=== PATIENT | female | born 1965 | race Two or more races ===

== ENCOUNTER 2016-12-13 13:27 | Outpatient (CLI) | payer OTHER ==
--- NOTE | 2016-12-13 20:04 | MRI Report ---
EXAM: RIGHT KNEE MRI WITHOUT CONTRAST EXAM DATE: 12/13/2016 02:28 PM. CLINICAL HISTORY: RT KNEE PAIN, CHRONIC. ARTHROSCOPIC SURGERY 4 YRS AGO TO REMOVE DEBRIS PER PT. COMPARISON: RIGHT KNEE MRI WITHOUT CONTRAST 04/12/2012. TECHNIQUE: Multiplanar, multisequence T1-weighted and fluid-sensitive sequences of the knee without c ontrast. Other: None. FINDINGS: Bones: No fractures or subluxations. Tricompartmental osteoarthritis with osteophytes, worse than in 2012, with mild reactive juxtaarticular marrow edema in the medial femoral condyle and tibial plateau . Subcortical cysts in the intercondylar eminence, worse than in 2012, reactive to mechanical stress. Articular Cartilage: Grade 4 cartilaginous degeneration with severe thinning and possible denudation in the medial femoral condyle and tibial plateau, worse than in 2012, with joint space narrowing. Gra de 3 cartilaginous degeneration within an irregular surface in the patella and trochlea and the poste rior part of medial femoral condyle, worse than in 2012, with a small cartilaginous flap in the troch niurka. Medial Meniscus: Degenerative signal and surface fraying in the medial meniscus without surface tear demonstrated. Lateral Meniscus: The lateral meniscus is intact. Cruciate Ligaments: Sprained anterior cruciate ligament with increased signal distally, not present i n 2012, without laxity. The posterior cruciate ligament is intact. Collateral Ligaments: Grade 1 sprain of medial collateral ligament with surrounding edema, not presen t in 2012. The posterior oblique and a lateral collateral ligaments are intact. Tendons: The quadriceps, patellar, semimembranosus, and popliteus tendons are unremarkable. Musculature: No edema or fatty atrophy. Other: Moderate to large effusion with synovitis and mild synovial fraying and mild lipoma arborescen s. No popliteal cyst. A small 4 mm loose body in the anterior part of the joint. The medial and late ral retinacula, patellofemoral ligaments and iliotibial band are intact. No bursitis. Postoperative c hanges into Hoffa's fat pad. The subcutaneous tissues and other fat pads are unremarkable. IMPRESSION: 1. Sprained anterior cruciate ligament with increased signal distally, not present in 2012, without l axity. Subcortical cysts in the intercondylar eminence, worse than in 2012, reactive to mechanical st ress. 2. Grade 1 sprain of medial collateral ligament with surrounding edema, not present in 2012. 3. Tricompartmental osteoarthritis with osteophytes, worse than in 2012, with mild reactive juxtaarti cular marrow edema in the medial femoral condyle and tibial plateau. 4. Grade 4 cartilaginous degeneration with severe thinning and possible denudation in the medial femo ral condyle and tibial plateau, worse than in 2012, with joint space narrowing. Grade 3 cartilaginous degeneration within an irregular surface in the patella and trochlea and the posterior part of media l femoral condyle, worse than in 2012, with a small cartilaginous flap in the trochlea. 5. Degenerative signal and surface fraying in the medial meniscus without surface tear demonstrated. 6. Moderate to large effusion with synovitis and mild synovial fraying and mild lipoma arborescens, n ot present in 2012. 7. A small 4 mm loose body in the anterior part of the joint, not present in 2012. RADIA MUSCULOSKELETAL RADIOLOGY SECTION Referring Provider Line: [phone] SITE ID: [id number]
== END 2016-12-13 13:28 | disposition home or self-care (01) ==
LOC: DI 13:27
PROVIDERS: ATTEND Nurse Practitioner Family
DX: M25.561 Pain in right knee (principal); G89.29 Other chronic pain; M17.11 Unilateral primary osteoarthritis, right knee; M25.461 Effusion, right knee; S83.511A Sprain of anterior cruciate ligament of right knee, initial encounter; S83.411A Sprain of medial collateral ligament of right knee, initial encounter

== ENCOUNTER 2017-02-06 15:22 | Outpatient (CLI) | payer OTHER | END 2017-02-06 15:23 | disposition home or self-care (01) | LOC: LAB 15:22 | DX: E87.5 Hyperkalemia (principal) | CPT/HCPCS: 36415; 84132 ==

== ENCOUNTER 2020-06-06 15:17 | Outpatient (CLI) | payer OTHER ==
[2020-06-06 16:17] VITALS: BP 114/73
--- NOTE | 2020-06-06 16:17 | SLEEP CARE CONSULTATION ---
Information from patient questionnaire entered by Puneet Villalta. I have reviewed and concur with the information entered by Puneet Villalta. This document represents the service I personally performed and the decisions made by me, Antonia Solorzano ARNP. History of Present Illness Service Date and Time: 06/06/2020 1517 Reason for Visit: New patient, Previously diagnosed sleep apnea, sleep apnea on CPAP therapy Chief Complaint: reports: Other (sleep apnea) Date of Onset: 8 years Usual bedtime: 11 PM Time it takes to fall asleep: 2 minutes to an hour Snores at night: Yes Observed to quit breathing while asleep: No Sleeps alone due to snoring: No Number of times waking at night: 2 - 3 Reasons for waking at night: reports: Choking, Snoring, Gasping for air, Pain, Bathroom Toss, Turn, or Twitch while sleeping: No Recalls having dreams: Yes Usually gets out of bed at: 7 AM Feels refreshed in the morning: No (sometimes) Morning headache: Yes Sleepy or fatigued during the day: Yes Ever fallen asleep while driving: No Takes day naps: No Dreams during day naps: No Prior sleep studies: Yes Year and Where: [address] [place] [address] Sleep Lab Additional HPI information: DEB HARRIS was diagnosed to have severe , AHI 74.0, obstructive sleep apnea-hypopnea syndrome in 2014 at [facility] in [place], [place] and comes in today to establish care for CPAP therapy. She has been unable to use her machine because she ran out of supplies. She ordered a mask online but it hurts her nose and she would like to return to the over the nose type of mask she had been using. - Parasomnia Symptoms Ever been unable to move upon waking from sleep: No Walks in sleep: No Talks in sleep: Yes Ever acted out dreams in sleep: No Ever felt weak in the knees when startled or emotional: Yes Bothered by creepy, crawly, restless sensations in legs: Yes Problems with memory or concentration: Yes CPAP Compliance Data - Data Reviewed with Patient Average duration of nightly device use: 5 hours 39 minutes Compliance rate %: 37 Current pressure setting (cmH2O): 6-14 Average residual AHI: 1.0 Central apnea: 0.1 Obstructive apnea: 0.9 Compliance data discussion: She was getting her equipment from a [facility] in [place] but she stopped getting supplies. She finally ran out of supplies and had to get a replacement mask online. She was using a mask that went over her nose. She originally tried a full face but got a lot of dry mouth. The nasal pillows mask hurt her face and nostrils. She has been trying a medium nasal cushion mask but it is also making her nose hurt, "like someone hit my nose". Subjective Missed days of use due to: reports: mask issues Patient concerns: reports: mask discomfort, other (causing nose soreness). denies: aerophagia, air blowing in eyes, mask leak noise, condensation in mask/hose, nasal congestion, dry mouth, nose, throat, epistaxis Observed to snore while using device: Yes (sometimes, but not a lot) Current pressure setting perceived as: comfortable On therapy, patient: reports: sleeping better, awakening more refreshed, being more awake and alert during the day, more rested overall. denies: drowsiness while driving Initial [place] Sleepiness Scale score: 6 (in 2020) Past Medical History Past Medical History: reports: Diabetes (borderline), Insulin resistance, Hypothyroidism. denies: Hypertension, Anxiety, Depression Social History The patient's occupation is a caregiver. Patient is and lives in [place]. Have you smoked in the past 12 months: Yes Years of smokin Quit date: 2015 Alcohol use: Yes Alcohol amount and frequency: 1 per month (once in a "blue cr") Caffeine use: Yes Caffeine amount and frequency: 1 cup coffee/day Family History Family history of sleep disordered breathing: No Allergies and Home Medications Drug allergies reviewed: Yes (NKDA) Home medication list reviewed: Yes Allergy and home medication list: Vitamins Fluconazole Review of Systems Weight gain over past 5 years: 50 Cardiovascular: reports: leg or foot swelling Neurological: reports: headaches Ear/Nose/Throat: reports: nasal congestion, dry mouth/throat. denies: tonsillectomy, wisdom teeth removed Endocrine: reports: thyroid disease Musculoskeletal: reports: joint pain (stiffness), neck pain Physical Exam Blood Pressure: 114/73 Cuff size: wrist Heart Rate: 84 O2 Saturation: 96 Height: 5 ft 1 in Weight: 199 lb Body Mass Index: 37.5 BMI Classification: Obese Heart: regular rate and rhythm Lungs: clear bilaterally Impression and Plan 1. Obstructive Sleep Apnea-Hypopnea Syndrome, severe, with poor treatment compliance and good apnea control. On CPAP therapy, the patient has better sleep quality and is more rested overall. Patient needs supplies to be able to use her machine. She is not sure why they stopped sending her supplies. Questions about supplies and replacement were answered. For patient supply concerns we will transfer to another DME supplier. I will have my pharmacy intake coordinator inform of DME options. A [facility]O prescription will then be made. Patient advised to contact this office if further supply problems. Patient also asking why she cannot go to sleep. She states in the last year she has had more difficulty going to sleep, sometimes until about 3 AM. She was advised to not lay down until sleepy, to limit time in bed to 7-9 hours and to get up at same time every morning. She does not feel she has more stress at work. She may have other worries. She was advised to set aside time to write down any worries or thoughts that keep her awake to allow her mind to feel they are dealt with which may help her to fall asleep sooner. She voiced understanding. Patient's apnea severity and rationale for treatment to reduce apnea, improve sleep quality and reduce cardiovascular and cerebrovascular events was reviewed. I also reviewed the benefit of consistent device use of CPAP for borderline diabetes and insulin resistance. * Continue auto CPAP pressure at 6-14 cmH2O * Transfer DME and update supplies * Notify me if snoring with mask or feeling that the pressure is too much or too little * Attempt to lose weight * Call this office if any problems using CPAP * Return for follow up in 1-2 months, or sooner if concerns arise Counseling Topics: Spare mask, Weight loss health impact Visit Type: In Office Time Spent with Patient (minutes): 39 Provider Statement: I spent 100% of the Face to Face Visit with the patient with greater than 50% spent counseling the patient and coordination of care.
== END 2020-06-06 15:18 | disposition home or self-care (01) ==
LOC: SC 15:17
PROVIDERS: ATTEND Nurse Practitioner Family
DX: G47.33 Obstructive sleep apnea (adult) (pediatric) (principal); E66.9 Obesity, unspecified; Z68.37 Body mass index [BMI] 37.0-37.9, adult
CPT/HCPCS: 99203; 99212

== ENCOUNTER 2021-05-31 06:24 | Day surgery (SDC) | payer OTHER ==
[~2021-05-31 06:24] MED LIST: LACTATED RINGERS 1,000 ML IV ONE
[2021-05-31] MEDS ORDERED: PROPOFOL 500 MG/50 ML 500 MG/50 ML VIAL ONE (07:07)
[2021-05-31] MEDS ORDERED: ONDANSETRON 4 MG/2 ML VIAL IVP PRN (07:14)
--- NOTE | 2021-05-31 07:16 | ANESTHESIA ---
Pre-Anesthesia VS, & Labs - Diagnosis colon polyps - Procedure colonoscopy Vital Signs: Temp Pulse Resp BP Pulse Ox 36.1 C L 68 18 137/91 H 95 05/31/21 06:42 05/31/21 06:42 05/31/21 06:42 05/31/21 06:42 05/31/21 06:42 Height: 5 ft 2 in Weight (kg): 86.9 kg Body Mass Index: 35.0 BMI Classification: Obese - NPO >8 hours - Is Patient ?: No - Lab Results Current Lab Results: Laboratory Tests 05/31/21 06:52: POC Whole Bld Glucose 89 Home Medications and Allergies Home Medications: Ambulatory Orders Naproxen 500 mg PO DAILY 05/31/21 Naproxen 500 mg PO DAILY 05/31/21 Allergies/Adverse Reactions: Allergies Allergy/AdvReac Type Severity Reaction Status Date / Time No Known Drug Allergies Allergy Verified 05/31/21 06:59 Anes History & Medical History - Anesthetic History Anesthesia Complications: reports: No previous complications - Medical History Cardiovascular: reports: High cholesterol, Other Pulmonary: reports: Sleep apnea, CPAP use Musculoskeletal: Endocrine/Autoimmune: reports: Type 2 diabetes Smoking Status: Former smoker History of Cancer?: No - Surgical History Gynecologic: reports: section Orthopedic: reports: Knee replacement Exam Mallampati classification: III Thyromental Distance: greater than 6 cm Respiratory: Lungs clear Cardiovascular: Regular rate Plan Anesthesia Type: Total IV Consent for Procedure(s) Verified and Reviewed: Yes Code Status: Attempt Resuscitation ASA classification: 2-Mild systemic disease Is this case an emergency?: No
[2021-05-31] MEDS ORDERED: ONDANSETRON 4 MG/2 ML VIAL ONE (07:20)
[2021-05-31] MEDS ORDERED: LACTATED RINGERS 1,000 ML IV ONE (09:10)
[2021-05-31 09:21] VITALS: BP 123/65
--- NOTE | 2021-05-31 10:21 | ANESTHESIA POST OP EVALUATION ---
Anesthesia Post Eval - Post Anesthesia Eval Vitals: Last Vital Signs Temp 36.2 C L 05/31/21 09:10 Pulse 74 05/31/21 09:10 Resp 15 05/31/21 09:10 BP 123/65 05/31/21 09:10 Pulse Ox 96 05/31/21 09:10 CV Function Including HR & BP: Stable Pain Control: Satisfactory Nausea & Vomiting: Negative Mental Status: Baseline Respiratory Status: Airway Patent Hydration Status: Satisfactory Anesthesia Complications: None
== END 2021-05-31 06:25 | disposition home or self-care (01) ==
LOC: SDS 06:24
PROVIDERS: ATTEND Surgery
PROC: 0DBL8ZX Excision of Transverse Colon, Via Natural or Artificial Opening Endoscopic, Diagnostic (ICD-10-PCS; principal; 2021-05-31 07:30)
DX: Z12.11 Encounter for screening for malignant neoplasm of colon (principal); D12.3 Benign neoplasm of transverse colon; G47.30 Sleep apnea, unspecified; E11.9 Type 2 diabetes mellitus without complications; E66.9 Obesity, unspecified; Z68.36 Body mass index [BMI] 36.0-36.9, adult; Z79.84 Long term (current) use of oral hypoglycemic drugs; Z86.010 Personal history of colon polyps; Z87.891 Personal history of nicotine dependence
CPT/HCPCS: 45380; J7120

== ENCOUNTER 2021-11-05 07:58 | Outpatient (CLI) | payer OTHER ==
--- NOTE | 2021-11-05 11:57 | Mammography Report ---
BILATERAL DIGITAL SCREENING MAMMOGRAM 3D/2D: 11/05/2021 CLINICAL: Routine screening. Comparison is made to exams dated: 06/23/2017 mammogram, 05/21/2016 mammogram, 04/11/2015 mammogram, mammogram, and 08/30/2012 mammogram - [facility]. There are scattered fibrogl andular elements in both breasts. No significant masses, calcifications, or other findings are seen in either breast. There has been no significant interval change. IMPRESSION: NEGATIVE There is no mammographic evidence of malignancy. A 1 year screening mammogram is recommended. Based on the Tyrer Cuzick model (a risk assessment model) the patients lifetime risk is 10.4% and he r 10 year risk is 3.4%. According to the ACR, ACS, and NCCN guidelines, an annual breast MRI exam clive ng with mammogram is recommended if the patients lifetime risk is 20% or greater. This exam was interpreted at Station ID: [id number]. NOTE: For mammograms, a report in lay terms will be sent to the patient. Approximately 15% of breast malignancies will not be visualized mammographically. In the management of a palpable breast mass, a negative mammogram must not discourage biopsy of a clinically suspicious lesion. Electronically Signed By: Akira Rios acr/isatu:11/05/2021 09:25:15 ACR BI-RADS Category 1: Negative 3341F PARENCHYMAL PATTERN: (A) - The breast(s) demonstrate(s) scattered fibroglandular densities. BI-RADS CATEGORY: (1) - 1 RECOMMENDATION: (ANNUAL) - Recommend routine annual screening mammography. [id number] 1 year screening LATERALITY: (B)
== END 2021-11-05 07:59 | disposition home or self-care (01) ==
LOC: DI.N 07:58
DX: Z12.31 Encounter for screening mammogram for malignant neoplasm of breast (principal)

== ENCOUNTER 2023-09-01 20:18 | Emergency (ER) | payer OTHER ==
[2023-09-01 20:31] VITALS: O2SAT 98
--- NOTE | 2023-09-01 20:40 | ED Physician Documentation ---
History of Present Illness - Stated complaint Stated Complaint: LOWER BACK PX - Chief complaint Chief Complaint: Back Pain - History obtained from History obtained from: Patient - Additonal information Additional information: The patient comes to the emergency department chief complaint of low back pain that is mostly in the midline but wraps around to her left hip. She states that the only injury she has had recently was she was doing some heavy lifting 4 days ago and felt a twinge in her left low back, almost as if she had pulled a muscle. She states it did not bother her too much for the next couple of days but then started to be more sore yesterday. When she woke up this morning, she noticed a significant increase in the pain and states that when she tried to get up from her bed and also later up from the couch, it hurt a lot to try to make that motion and she had to have her son help her. The patient denies any pain shooting down her leg. She denies any pain in the hip joint but just states that the pain radiates toward there. She does not have any known history of chronic back issues. She is otherwise fairly healthy. She denies any loss of bowel or bladder control. No other complaints at this time. 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 - Present Medications Home Medications: Ambulatory Orders Medication Instructions Recorded Confirmed Baclofen [Lioresal] 10 mg PO TID PRN 09/01/23 09/01/23 Cyclobenzaprine [Flexeril] 10 mg PO TID PRN #20 tablet 09/01/23 HYDROcod/ACETAM 5/325 [[place] 5/325] 1 - 2 tablet PO Q6H PRN #10 tablet 09/01/23 predniSONE [Deltasone] 10 mg PO [id number] #42 tab 09/01/23 - Allergies Allergies/Adverse Reactions: Allergies Allergy/AdvReac Type Severity Reaction Status Date / Time No Known Drug Allergies Allergy Verified 09/01/23 20:26 - Social History Does the pt smoke?: No Smoking Status: Never smoker Does the pt drink ETOH?: No Does the pt have substance abuse?: No PD ED PE NORMAL - Vitals Vital signs reviewed: Yes - General General: Alert and oriented X 3, No acute distress, Well developed/nourished - HEENT HEENT: Atraumatic, PERRL, EOMI, Moist mucous membranes - Neck Neck: Supple, no meningeal sign - Respiratory Respiratory: No respiratory distress - Abdomen Abdomen: Soft, Non tender, Non distended - Back Back: Other (Moderate tenderness over the left most aspect of the spine and extending laterally from there. No step-off or other deformity. No sciatic tenderness.) - Derm Derm: Normal color, Warm and dry, No rash - Extremities Extremities: No deformity - Neuro Neuro: No motor deficit, No sensory deficit, Other (Otherwise grossly intact.) - Psych Psych: Normal mood, Normal affect Results - Vitals Vitals: Vital Signs - 24 hr 09/01/23 09/01/23 09/01/23 20:21 20:26 20:29 Temperature 36.1 C L Heart Rate 72 79 Respiratory 18 18 18 Rate Blood Pressure 163/81 H 128/82 H O2 Saturation 98 98 Oxygen O2 Source Room air - Rads (name of study) Lumbar spine x-ray series Relevant Findings:: Final report received, See rad report (Some DJD, otherwise unremarkable) PD Medical Decision Making - ED course Complexity details: reviewed results, re-evaluated patient, considered differential, d/w patient ED course: The patient was treated symptomatically with Toradol, Dilaudid and Decadron. She was sent for lumbar spine x-ray series. X-ray series showed some DJD but otherwise unremarkable for acute findings. The patient was feeling better symptomatically and I felt she was stable for discharge home. I have sent prescriptions for symptomatic meds and we have discussed management at home as well as usual indications for follow-up and return. Departure - Departure Disposition: Home, Self Care Clinical Impression: Lumbar back sprain Qualifiers: Encounter type: initial encounter Qualified Code(s): S33.5XXA - Sprain of ligaments of lumbar spine, initial encounter Condition: Stable Instructions: ED Low Back Pain Injury Prescriptions: predniSONE [Deltasone] 10 mg PO [id number] #42 tab Cyclobenzaprine [Flexeril] 10 mg PO TID PRN #20 tablet PRN Reason: Spasms HYDROcod/ACETAM 5/325 [[place] 5/325] 1 - 2 tablet PO Q6H PRN #10 tablet PRN Reason: Pain Comments: Your x-ray shows a little bit of degeneration in your low spine which does put you at some risk for pain if you strained a muscle. However, your spinal alignment looks good and your bone integrity looks good. There is no evidence of any emergent complications of your back injury tonight. You will most likely have back pain before is anywhere from a few days to couple of weeks. As such, some prescriptions for medication for pain, muscle relaxation, and inflammation have been electronically transmitted to the [facility] pharmacy in [place]. I have given you a work note for the rest of the week to use if needed. Please follow-up with your primary care physician. Forms: Activity restrictions Discharge Date/Time: 09/01/23 22:09
[2023-09-01] MEDS: HYDROmorphone 1 MG/ML CARPUJECT IM STA (20:54)
[2023-09-01] MEDS: KETOROLAC 60 MG/2 ML VIAL IM STA (20:55)
[2023-09-01] MEDS: DEXAMETHASONE 10 MG/ML VIAL IM STA (20:57)
[2023-09-01 21:49] VITALS: BP 128/82
--- NOTE | 2023-09-01 22:20 | XRAY Report ---
PROCEDURE: Lumbar Spine 2-3V INDICATIONS: strain, worsening pain TECHNIQUE: 3 views of the lumbar spine were acquired. COMPARISON: None. FINDINGS: Bones: 5 [id number] vertebrae are present. No acute vertebral body fractures. There is trace re trolisthesis of L2 on 3, L3 and 4, and L4-5. There is moderate disc height loss and posterior endplat e spurring at L4-5 and to a lesser extent L2-3. Mild disc height loss elsewhere. Prominent facet arth ropathy L5-S1. Soft tissues: Overlying bowel gas pattern is normal. No suspicious soft tissue calcifications. IMPRESSION: No acute fractures. Multilevel spondylosis and trace spondylolisthesis, particularly in the lower lumbar spine may cause bony foraminal narrowing. Reviewed by: Tea Kemp MD on 09/01/2023 10:19 PM PDT Approved by: Tea Kemp MD on 09/01/2023 10:19 PM PDT Station ID: [id number]
== END 2023-09-01 22:09 | disposition home or self-care (01) ==
LOC: ED 20:18
DX: S33.5XXA Sprain of ligaments of lumbar spine, initial encounter (principal); X50.0XXA Overexertion from strenuous movement or load, initial encounter; I10 Essential (primary) hypertension; E78.00 Pure hypercholesterolemia, unspecified; E11.9 Type 2 diabetes mellitus without complications; Z79.899 Other long term (current) drug therapy
CPT/HCPCS: 72100; 96372; 99283; 99284; J1170